=== PATIENT | male | born 1950 | race Caucasian/White ===

== ENCOUNTER 2020-02-17 07:42 | Day surgery (SDC) | payer MEDICARE, OTHER ==
[~2020-02-17] VITALS: Ht 165.1 cm; Wt 71.9 kg
[2020-02-17 08:10] VITALS: BP 125/76
[2020-02-17] MEDS ORDERED: normal saline 1,000 ML IV SCH (08:15)
[2020-02-17] MEDS ORDERED: vancomycin 1,000mg inj ONE (08:50)
[2020-02-17] MEDS ORDERED: midazolam 2 mg/2 ml injection ONE ×2 (08:50→09:35)
[2020-02-17] MEDS ORDERED: fentaNYL/PF 50MCG/1 ML 2ML syringe ONE (08:50)
[2020-02-17] MEDS ORDERED: LIDOcaine 1% W/epiNEPHrine 1:100,000 20ml vial ONE (08:51)
[2020-02-17] MEDS ORDERED: ceFAZolin 1000mg inj ONE (08:51)
[2020-02-17] MEDS ORDERED: ROSU20TA2 PO (08:52)
[2020-02-17] MEDS ORDERED: FENO145T46 PO (08:52)
[2020-02-17] MEDS ORDERED: EZET10TA6 PO (08:52)
[2020-02-17] MEDS ORDERED: LEUP3.753 IM (08:52)
[2020-02-17] MEDS ORDERED: LISI-642 PO (08:52)
[2020-02-17] MEDS ORDERED: SERT50TA PO (08:52)
[2020-02-17] MEDS ORDERED: AMIO200T61 PO (08:52)
[2020-02-17] MEDS ORDERED: MAGN250T11 PO (08:52)
[2020-02-17] MEDS ORDERED: CARV-49 PO (08:52)
[2020-02-17] MEDS ORDERED: EVOL140P3 SUBCUT (08:52)
[2020-02-17] MEDS ORDERED: ASPI-1265 PO (08:52)
[2020-02-17] MEDS ORDERED: UBID100C16 PO (08:52)
[2020-02-17 08:54] LABS: ALBUMIN 3.8 G/DL (3.4-5.0); ANION GAP 9 (8-16); BLOOD UREA NITROGEN 38 MG/DL (7-18); BUN/CREATININE RATIO 21.7 (5.4-32.0); CALCIUM 9.1 MG/DL (8.5-10.1); CHLORIDE 106 MMOL/L (99-107); CREATININE 1.75 MG/DL (0.60-1.10); GLUCOSE 108 MG/DL (70-104); MAGNESIUM 2.3 MG/DL (1.5-2.4); POTASSIUM 5.3 MMOL/L (3.5-5.1); SODIUM 139 MMOL/L (135-145); TOTAL CARBON DIOXIDE 24.5 MMOL/L (24-32); eGFR 39 ML/MIN
[2020-02-17 08:58] LABS: BASOPHILS # (AUTO) 0.1 X10'3 (0-0.2); BASOPHILS % (AUTO) 1.2 % (0-1); EOSINOPHILS # (AUTO) 0.4 X10'3 (0-0.9); HEMATOCRIT 35.6 % (42.0-52.0); LYMPHOCYTES # (AUTO) 1.4 X10'3 (1.1-4.8); MEAN CORPUSCULAR HEMOGLOBIN 32.6 PG (27.0-31.0); MEAN CORPUSCULAR HGB CONC 33.6 g/dL (33.0-36.5); MEAN CORPUSCULAR VOLUME 96.9 FL (78-98); MEAN PLATELET VOLUME 8.2 FL (7.4-10.4); MONOCYTES # (AUTO) 0.7 X10'3 (0-0.9); MONOCYTES % (AUTO) 9.8 % (2-12); NEUTROPHILS # (AUTO) 4.2 X10'3 (1.8-7.7); PLATELET COUNT 228 X10'3 (140-440); RED BLOOD COUNT 3.68 X10'6 (4.70-6.10); RED CELL DISTRIBUTION WIDTH 14.4 % (11.5-14.5); WHITE BLOOD COUNT 6.8 X10'3 (4.5-11.0)
--- NOTE | 2020-02-17 10:30 | NUR ---
pt returned to room, vs stable as charted. Drsg CD&I, no s/s of bleeding or infection pt sitting up in bed eating breakfast. will continue to monitor
[2020-02-17 10:35] VITALS: BP 134/71
[2020-02-17 10:50] VITALS: BP 111/78
[2020-02-17 11:05] VITALS: BP 127/69
[2020-02-17] MEDS ORDERED: normal saline 1000ml 1,000 ML IV SCH (11:15)
[2020-02-17 11:20] VITALS: BP 127/71
--- NOTE | 2020-02-17 11:30 | NUR ---
Pt has small amount of drainage at the bottom of Drsg. Pt finished eating 100% of breakfast tray and 100% of lunch tray. Pt denies cp, denies sob. will continue to monitor.
[2020-02-17 11:50] VITALS: BP 105/58
== END 2020-02-17 12:25 | disposition home or self-care (01) ==
LOC: SSTAY O 07:42
PROVIDERS: ATTEND Internal Medicine Cardiovascular Disease
DX: Z45.010 Encounter for checking and testing of cardiac pacemaker pulse generator [battery] (principal); I25.2 Old myocardial infarction; Z95.5 Presence of coronary angioplasty implant and graft; Z98.890 Other specified postprocedural states; Z79.899 Other long term (current) drug therapy; Z85.46 Personal history of malignant neoplasm of prostate; Z87.891 Personal history of nicotine dependence; Z82.3 Family history of stroke
CPT/HCPCS: 33229; 36415; 80048; 83735; 85025; 85610; 93005; 99152; 99153; C2621; J0690; J2250; J3010; J3370; J7030; J7050; A4620; C1882

== ENCOUNTER 2020-07-24 13:57 | Observation (INO) | payer MEDICARE, OTHER ==
[~2020-07-24] VITALS: Ht 160 cm; Wt 62.8 kg
[2020-07-24] VITALS (12 sets, daily range): BP systolic 94–155; BP diastolic 56–90
[~2020-07-24 13:57] MED LIST: AMIO200T61 PO; ASPI-1265 PO; CARV-49 PO; EVOL140P3 SUBCUT; EZET10TA6 PO; FENO145T46 PO; LEUP3.753 IM; LISI-642 PO; MAGN250T11 PO; ROSU20TA2 PO; SERT50TA PO; UBID100C16 PO
[2020-07-24] MEDS ORDERED: diphenhydrAMINE 25mg capsule PO PRN (14:25)
[2020-07-24] MEDS ORDERED: RANO500T3 PO (14:32)
[2020-07-24 14:59] LABS: BASOPHILS # (AUTO) 0.1 X10'3 (0-0.2); BASOPHILS % (AUTO) 1.4 % (0-1); EOSINOPHILS # (AUTO) 0.3 X10'3 (0-0.9); EOSINOPHILS % (AUTO) 4.6 % (0-6); HEMATOCRIT 35.9 % (42.0-52.0); HEMOGLOBIN 12.2 g/dl (14.0-17.9); LYMPHOCYTES # (AUTO) 1.8 X10'3 (1.1-4.8); LYMPHOCYTES % (AUTO) 24.2 % (21-51); MEAN CORPUSCULAR HEMOGLOBIN 32.5 PG (27.0-31.0); MEAN CORPUSCULAR VOLUME 95.5 FL (78-98); MEAN PLATELET VOLUME 7.6 FL (7.4-10.4); MONOCYTES # (AUTO) 0.6 X10'3 (0-0.9); MONOCYTES % (AUTO) 7.5 % (2-12); NEUTROPHILS # (AUTO) 4.6 X10'3 (1.8-7.7); NEUTROPHILS % (AUTO) 62.3 % (42-75); PLATELET COUNT 346 X10'3 (140-440); RED BLOOD COUNT 3.76 X10'6 (4.70-6.10); RED CELL DISTRIBUTION WIDTH 13.9 % (11.5-14.5); WHITE BLOOD COUNT 7.4 X10'3 (4.5-11.0)
[2020-07-24] MEDS: normal saline 1,000 ML IV SCH ×2 (15:13→20:41)
[2020-07-24 15:26] LABS: ANION GAP 7 (8-16); BLOOD UREA NITROGEN 31 MG/DL (7-18); BUN/CREATININE RATIO 18.9 (5.4-32.0); CALCIUM 9.4 MG/DL (8.5-10.1); CHLORIDE 100 MMOL/L (99-107); CREATININE 1.64 MG/DL (0.60-1.10); GLUCOSE 104 MG/DL (70-104); MAGNESIUM 2.2 MG/DL (1.5-2.4); SODIUM 133 MMOL/L (135-145); TOTAL CARBON DIOXIDE 25.6 MMOL/L (24-32); eGFR 42 ML/MIN
[2020-07-24] MEDS ORDERED: iohexol 350 MG/ML 50ML vial IV ONE ×2 (16:55→18:00)
[2020-07-24] MEDS ORDERED: fentaNYL/PF 50MCG/1 ML 2ML syringe ONE (16:55)
[2020-07-24] MEDS ORDERED: iohexol 350MG/ML 100ml bottle IV ONE ×2 (16:55→17:36)
[2020-07-24] MEDS ORDERED: midazolam 2 mg/2 ml injection ONE ×2 (16:55→17:24)
[2020-07-24] MEDS ORDERED: LIDOcaine 1% (10mg/ml)w/preservative injection 20ml MDV ONE (16:55)
[2020-07-24] MEDS ORDERED: heparin 1,000unit/ml 10ml vial 10 ML ONE (17:36)
[2020-07-24] MEDS ORDERED: ticagrelor 90mg tablet ONE (18:14)
--- NOTE | 2020-07-24 18:16 | NUR ---
called report to Acce ELLEN Bray RN
--- NOTE | 2020-07-24 18:22 | NUR ---
Patient in room . I have received report from Radha HUGHES and Jalen RN and had the opportunity to ask questions and assume patient care.
[2020-07-24] MEDS ORDERED: HYDROcodone/acetaminophen 10/325mg tab PO PRN (19:10)
[2020-07-24] MEDS ORDERED: acetaminophen 325mg tablet PO PRN (19:10)
[2020-07-24] MEDS ORDERED: HYDROcodone/acetaminophen 5mg/325mg tablet PO PRN (19:10)
[2020-07-24] MEDS ORDERED: furosemide 20 MG/2 ML vial IV ONE (20:00)
--- NOTE | 2020-07-24 20:01 | NUR ---
Patient wants to take his home medications at home once he get discharged markus
--- NOTE | 2020-07-24 20:21 | NUR ---
Called Dr. Moon at 2020 regarding patient femoral groin site of 75% saturation of bleeding at site. Dr. Moon said to put femstop on
--- NOTE | 2020-07-24 20:36 | NUR ---
fem stop placed at 2032
--- NOTE | 2020-07-24 20:55 | NUR ---
at 2054 Dr. Moon called, and advised that the patient stay overnight if the femstop is still needed, and be discharged in the morning. If patient did not have any other further complications, then patient may be sent home at 2300.
[2020-07-24 20:59] LABS: CHOL/HDL RATIO 1.7 (0.00-4.99); CHOLESTEROL 111 MG/DL (0-200); HDL CHOLESTEROL 66 MG/DL (35-60); LDL CHOLESTEROL 26 MG/DL (50-100); TRIGLYCERIDES 76 MG/DL (20-135)
--- NOTE | 2020-07-24 23:49 | NUR ---
at 2320, fem stop was put back on due to 25% saturation after patient urinated. no other s/s of complications, no hematoma. Patient will be staying overnight and needs some more monitoring
[2020-07-25] VITALS: BP 110/60
[2020-07-25 01:00] VITALS: BP 108/61
--- NOTE | 2020-07-25 01:00 | NUR ---
Femstop was released and checked. Pulses were strong, and no new bleeding occurred at site. Slight bleeding occurred upon removal of fem stop. Dressing was changed and femstop was reapplied.
--- NOTE | 2020-07-25 03:00 | NUR ---
Femstop was removed and I assessed groin site, no new bleeding and dressing had no appearance of bleeding. Fem stop reapplied.
[2020-07-25 04:20] VITALS: BP 106/54
--- NOTE | 2020-07-25 06:06 | NUR ---
Problems reprioritized. Patient report given, questions answered & plan of care reviewed with Jose HUGHES.
--- NOTE | 2020-07-25 06:10 | NUR ---
Patient in room MED [id number]. I have received report from ELLEN Fuentes and had the opportunity to ask questions and assume patient care.
[2020-07-25] MEDS ORDERED: carvedilol 6.25mg tablet PO SCH (08:00)
[2020-07-25] MEDS ORDERED: ranolazine 500mg SR tablet (Q12H) PO SCH (08:00)
[2020-07-25] MEDS ORDERED: fenofibrate 145mg tablet PO SCH (08:00)
[2020-07-25] MEDS ORDERED: lisinopril 5mg tablet PO SCH (08:00)
[2020-07-25] MEDS ORDERED: ezetimibe 10mg tablet PO SCH (08:00)
[2020-07-25] MEDS ORDERED: non-formulary drug (Ubidecarenone (Coq-10) 200 MG) PO SCH (08:00)
[2020-07-25] MEDS ORDERED: sertraline 50mg tablet PO SCH (08:00)
[2020-07-25] MEDS ORDERED: ticagrelor 90mg tablet PO SCH (08:00)
[2020-07-25] MEDS ORDERED: magnesium Cl slow-release 64mg tablet PO SCH (08:00)
[2020-07-25] MEDS ORDERED: aspirin 81mg tab.chew PO SCH (08:00)
[2020-07-25] MEDS ORDERED: amiodarone 200mg tablet PO SCH (08:00)
[2020-07-25] MEDS ORDERED: atorvastatin 20mg tablet PO SCH (08:00)
== END 2020-07-25 07:45 | disposition home or self-care (01) ==
LOC: SSTAY O 13:57 → MED 3N 19:19
PROVIDERS: ADMIT Internal Medicine Cardiovascular Disease; ATTEND Internal Medicine Cardiovascular Disease
DX: I25.10 Atherosclerotic heart disease of native coronary artery without angina pectoris (principal); I25.5 Ischemic cardiomyopathy; I47.2 Ventricular tachycardia; I10 Essential (primary) hypertension; I25.2 Old myocardial infarction; C61 Malignant neoplasm of prostate; E78.5 Hyperlipidemia, unspecified; Z95.1 Presence of aortocoronary bypass graft; Z95.0 Presence of cardiac pacemaker; Z79.899 Other long term (current) drug therapy
CPT/HCPCS: 36415; 80048; 80061; 83735; 85025; 85610; 93005; 93459; 96361; 96374; C1725; C1751; C1760; C1769; C1874; C1894; C9604; G0378; J1644; J1940; J2001; J2250; J3010; J7030; Q0163; Q9967; 99152; 99153; A4620; A6258

== ENCOUNTER 2020-08-03 07:31 | Day surgery (SDC) | payer MEDICARE, OTHER ==
[2020-08-03] VITALS (10 sets, daily range): BP systolic 85–146; BP diastolic 46–88
[~2020-08-03] VITALS: Ht 160 cm; Wt 69.2 kg
[~2020-08-03 07:31] MED LIST changes: +RANO500T3 PO
[2020-08-03] MEDS ORDERED: normal saline 1,000 ML IV SCH (08:00)
[2020-08-03] MEDS ORDERED: diphenhydrAMINE 25mg capsule PO PRN (08:00)
[2020-08-03] MEDS ORDERED: TICA90TA2 PO (08:09)
[2020-08-03] MEDS ORDERED: NITR0.4T48 SL (08:09)
[2020-08-03 08:15] LABS: BASOPHILS # (AUTO) 0.1 X10'3 (0-0.2); BASOPHILS % (AUTO) 0.9 % (0-1); EOSINOPHILS # (AUTO) 0.9 X10'3 (0-0.9); EOSINOPHILS % (AUTO) 10.1 % (0-6); HEMATOCRIT 35.7 % (42.0-52.0); HEMOGLOBIN 12.1 g/dl (14.0-17.9); LYMPHOCYTES # (AUTO) 1.2 X10'3 (1.1-4.8); LYMPHOCYTES % (AUTO) 13.8 % (21-51); MEAN CORPUSCULAR HEMOGLOBIN 32.6 PG (27.0-31.0); MEAN CORPUSCULAR HGB CONC 33.9 g/dL (33.0-36.5); MEAN CORPUSCULAR VOLUME 96.1 FL (78-98); MEAN PLATELET VOLUME 8.1 FL (7.4-10.4); MONOCYTES # (AUTO) 0.8 X10'3 (0-0.9); MONOCYTES % (AUTO) 8.8 % (2-12); NEUTROPHILS # (AUTO) 5.9 X10'3 (1.8-7.7); NEUTROPHILS % (AUTO) 66.4 % (42-75); PLATELET COUNT 269 X10'3 (140-440); RED BLOOD COUNT 3.72 X10'6 (4.70-6.10); RED CELL DISTRIBUTION WIDTH 14.1 % (11.5-14.5); WHITE BLOOD COUNT 8.9 X10'3 (4.5-11.0)
[2020-08-03 08:24] LABS: ANION GAP 11 (8-16); BLOOD UREA NITROGEN 36 MG/DL (7-18); BUN/CREATININE RATIO 20.6 (5.4-32.0); CALCIUM 9.2 MG/DL (8.5-10.1); CHLORIDE 102 MMOL/L (99-107); CREATININE 1.75 MG/DL (0.60-1.10); GLUCOSE 100 MG/DL (70-104); MAGNESIUM 1.8 MG/DL (1.5-2.4); POTASSIUM 5.3 MMOL/L (3.5-5.1); SODIUM 135 MMOL/L (135-145); TOTAL CARBON DIOXIDE 21.6 MMOL/L (24-32); eGFR 39 ML/MIN
[2020-08-03] MEDS ORDERED: heparin 1,000unit/ml 10ml vial 10 ML ONE (09:15)
[2020-08-03] MEDS ORDERED: iohexol 350MG/ML 100ml bottle IV ONE (09:15)
[2020-08-03] MEDS ORDERED: LIDOcaine 1% W/epiNEPHrine 1:100,000 20ml vial ONE (09:15)
[2020-08-03] MEDS ORDERED: verapamil 2.5 mg/ml inj IV ONE (09:15)
[2020-08-03] MEDS ORDERED: midazolam 2 mg/2 ml injection ONE ×2 (09:15→09:48)
[2020-08-03] MEDS ORDERED: nitroGLYCERIN-Tridil 50MG/D5W 250 ML IV ONE (09:15)
[2020-08-03] MEDS ORDERED: iohexol 350 MG/ML 50ML vial IV ONE (09:15)
[2020-08-03] MEDS ORDERED: fentaNYL/PF 50MCG/1 ML 2ML syringe ONE (09:15)
[2020-08-03] MEDS ORDERED: proCHLORperazine 10 MG/2 ml inj ONE (09:16)
[2020-08-03] MEDS ORDERED: HYDROcodone/acetaminophen 10/325mg tab PO PRN (11:00)
[2020-08-03] MEDS ORDERED: HYDROcodone/acetaminophen 5mg/325mg tablet PO PRN (11:00)
[2020-08-03] MEDS ORDERED: proCHLORperazine 10 MG/2 ml inj IV PRN (11:00)
[2020-08-03] MEDS ORDERED: ondansetron/PF 4mg/2ml inj IV PRN (11:00)
== END 2020-08-03 14:05 | disposition home or self-care (01) ==
LOC: SSTAY O 07:31
PROVIDERS: ATTEND Internal Medicine Cardiovascular Disease
DX: I25.729 Atherosclerosis of autologous artery coronary artery bypass graft(s) with unspecified angina pectoris (principal); I47.2 Ventricular tachycardia; I25.5 Ischemic cardiomyopathy; I25.2 Old myocardial infarction; E78.5 Hyperlipidemia, unspecified; Z95.810 Presence of automatic (implantable) cardiac defibrillator; Z79.82 Long term (current) use of aspirin; Z79.899 Other long term (current) drug therapy; Z87.19 Personal history of other diseases of the digestive system; Z87.891 Personal history of nicotine dependence; Z95.5 Presence of coronary angioplasty implant and graft; Z82.3 Family history of stroke; Z80.49 Family history of malignant neoplasm of other genital organs
CPT/HCPCS: 36415; 80048; 83735; 85025; 85610; 93005; 93455; 99152; C1769; C1894; J0780; J1644; J2250; J3010; J7030; Q0163; Q9967; A4620; A5120; J3490